=== PATIENT | male | born 1940 | race Caucasian/White ===

== ENCOUNTER 2024-10-12 18:20 | Emergency (ER) | payer MEDICARE, OTHER ==
[2024-10-12] MEDS ORDERED: Sodium Chloride 0.9% 10 ML Syringe FLUSH PRN (18:37)
[2024-10-12] MEDS: Aspirin 81 MG Tab.Chew PO ONE (18:46)
[2024-10-12] MEDS: Nitroglycerin 0.4 MG Tab.SL SL ONE (18:46)
[2024-10-12 18:53] LABS: BASOPHILS PERCENT AUTO 0.1 % (0.2-1.2); EOSINOPHILS PERCENT AUTO 0.3 % (0.0-4.0); HEMATOCRIT 43.4 % (40.0-52.0); HEMOGLOBIN 14.2 g/dL (14.0-18.0); IMMATURE GRAN ABSOLUTE AUTO 0.45 x10^3/uL (0.00-0.07); LYMPHOCYTES ABSOLUTE AUTO 1.1 x10^3/uL (1.0-4.8); LYMPHOCYTES PERCENT AUTO 7.9 % (25.0-50.0); MEAN CORPUSCULAR HEMOGLOBIN 31.2 pg (26.0-32.0); MEAN CORPUSCULAR HGB CONC 32.7 g/dL (32.0-36.0); MEAN CORPUSCULAR VOLUME 95.4 fL (78.0-93.0); MONOCYTES ABSOLUTE AUTO 3.4 x10^3/uL (0.0-0.8); MONOCYTES PERCENT AUTO 23.6 % (2.0-11.0); NEUTROPHILS ABSOLUTE AUTO 9.4 x10^3/uL (1.8-7.7); PLATELET COUNT,PLT 140 x10^3/uL (130-400); RED BLOOD CELL COUNT 4.55 x10^6/uL (4.5-6.0); WHITE BLOOD CELL COUNT,WBC 14.4 x10^3/uL (4.0-10.0)
[2024-10-12 19:04] LABS: PROTHROMBIN TIME 10.9 SEC (9.6-12.0)
[2024-10-12 19:39] LABS: A/G RATIO 0.89; ALBUMIN 3.2 g/dL (3.4-5.0); BILIRUBIN TOTAL 0.8 mg/dL (0.2-1.0); CALCIUM 9.5 mg/dL (8.5-10.1); CREATININE 1.9 mg/dL (0.70-1.30); EST CRCL DRUG DOSING (CG) 27.06 mL/min; MAGNESIUM 1.4 mg/dL (1.8-2.4); POTASSIUM,K 4.6 mmol/L (3.5-5.1); PROTEIN TOTAL,TP 6.8 g/dL (6.4-8.2)
[2024-10-12 19:40] LABS: ANION GAP 14.6 mmol/L (5-15)
[2024-10-12] MEDS: Magnesium Oxide 400 MG Tab PO ONE (20:10)
[2024-10-12] MEDS: Levofloxacin 500 MG Tab PO ONE (20:59)
== END 2024-10-12 21:01 | disposition home or self-care (01) ==
LOC: VM.ED 18:20
DX: J18.9 Pneumonia, unspecified organism (principal); E83.42 Hypomagnesemia; Z79.899 Other long term (current) drug therapy
CPT/HCPCS: 36415; 71045; 80053; 83735; 83880; 84484; 85025; 85610; 93005; 99285; A9270; 93010; 99284

== ENCOUNTER 2024-11-01 09:39 | Emergency (ER) | payer MEDICARE, OTHER ==
[2024-11-01] MEDS ORDERED: Sodium Chloride 0.9% 10 ML Syringe FLUSH PRN (10:15)
[2024-11-01] MEDS ORDERED: Iopamidol 612 MG/ML 100 ML Bottle IVPUSH ONE ×2 (10:25→10:41)
[2024-11-01] MEDS: Ondansetron 4 MG/2 ML SDV IVPUSH ONE ×2 (10:56→14:28)
[2024-11-01] MEDS: Sodium Chloride 0.9% 1,000 ML IV ONE (10:56)
[2024-11-01] MEDS: Morphine 2 MG/ML SYRINGE IVPUSH ONE ×2 (10:58→16:39)
[2024-11-01 11:26] LABS: HEMATOCRIT 39.3 % (40.0-52.0); HEMOGLOBIN 12.9 g/dL (14.0-18.0); MEAN CORPUSCULAR HEMOGLOBIN 30.9 pg (26.0-32.0); MEAN CORPUSCULAR HGB CONC 32.8 g/dL (32.0-36.0); MEAN CORPUSCULAR VOLUME 94.2 fL (78.0-93.0); PLATELET COUNT,PLT 195 x10^3/uL (130-400); RED BLOOD CELL COUNT 4.17 x10^6/uL (4.5-6.0)
[2024-11-01 11:40] LABS: WHITE BLOOD CELL COUNT,WBC 24.3 x10^3/uL (4.0-10.0)
[2024-11-01] MEDS: cefTRIAXone 1 GM Vial IVPUSH ONE (11:42)
[2024-11-01 11:57] LABS: A/G RATIO 0.61; ALANINE AMINOTRANSFERASE,ALT 57 U/L (16-63); ALBUMIN 2.8 g/dL (3.4-5.0); ALKALINE PHOSPHATASE 102 U/L (46-116); ANION GAP 22.2 mmol/L (5-15); ASPARTATE AMNIOTRANSFERASE,AST 23 U/L (15-37); BILIRUBIN TOTAL 0.9 mg/dL (0.2-1.0); BLOOD UREA NITROGEN,BUN 60 mg/dL (7-18); CALCIUM 9.8 mg/dL (8.5-10.1); CARBON DIOXIDE,CO2 19 mmol/L (21-32); CHLORIDE,CL 100 mmol/L (98-107); GLUCOSE RANDOM 215 mg/dL (70-99); POTASSIUM,K 5.2 mmol/L (3.5-5.1); PROTEIN TOTAL,TP 7.4 g/dL (6.4-8.2); SODIUM,NA 136 mmol/L (136-145)
[2024-11-01 11:58] LABS: CREATININE 4.9 mg/dL (0.70-1.30)
[2024-11-01 11:59] LABS: ESTIMATED GFR 11 mL/min (>=60)
[2024-11-01 12:00] LABS: LIPASE 64 U/L (19-71)
[2024-11-01 12:02] LABS: BAND PERCENT MAN 1 % (0-6); LYMPHOCYTES ABSOLUTE MAN 0.7 x10^3/uL (1.0-4.8); LYMPHOCYTES PERCENT MAN 3 % (25-50); METAMYELOCYTE PERCENT MAN 1 % (0); MONOCYTES ABSOLUTE MAN 1.7 x10^3/uL (0.0-0.8); MONOCYTES PERCENT MAN 7 % (2-11); MYELOCYTE PERCENT MAN 1 % (0); NEUTROPHILS ABSOLUTE MAN 21.4 x10^3/uL (1.8-7.7); PLATELET COUNT ESTIMATE ADEQUATE; SEG NEUTROPHILS PERCENT MAN 87 % (50-80)
[2024-11-01 12:04] LABS: POIKILOCYTOSIS 1+ SLIGHT
[2024-11-01 12:06] LABS: ANISOCYTOSIS NOT SEEN; OVALOCYTES 1+ SLIGHT
[2024-11-01 12:46] LABS: APPEARANCE,URINE SLIGHTLY CLOUDY (CLEAR); BILIRUBIN,URINE SMALL (NEGATIVE); COLOR,URINE DARK YELLOW (YELLOW); GLUCOSE,URINE NEGATIVE (NEGATIVE); KETONES,URINE NEGATIVE (NEGATIVE); LEUKOCYTE ESTERASE,URINE TRACE (NEGATIVE); NITRITE,URINE NEGATIVE (NEGATIVE); OCCULT BLOOD,URINE NEGATIVE (NEGATIVE); PH,URINE 5.5 (5.0-8.0); PROTEIN,URINE 100 mg/dL (NEGATIVE); UROBILINOGEN,URINE 0.2 EU/dL (0.2)
[2024-11-01 12:55] LABS: AMORPHOUS SEDIMENT,URINE FEW; BACTERIA,URINE MANY /HPF (NOT SEEN); HYALINE CASTS,URINE MANY; MUCUS,URINE MODERATE /LPF (NOT SEEN); SQUAMOUS EPITHELIAL CELLS,UR MODERATE /HPF (NOT SEEN)
[2024-11-01] MEDS: Diltiazem 50 MG/10 ML SDV IVPUSH ONE (14:31)
== END 2024-11-01 14:42 | disposition short-term general hospital (02) ==
LOC: VM.ED 09:39
DX: S32.018A Other fracture of first lumbar vertebra, initial encounter for closed fracture (principal); S22.41XA Multiple fractures of ribs, right side, initial encounter for closed fracture; A41.9 Sepsis, unspecified organism; S32.028A Other fracture of second lumbar vertebra, initial encounter for closed fracture; I31.39 Other pericardial effusion (noninflammatory); I48.91 Unspecified atrial fibrillation; E78.00 Pure hypercholesterolemia, unspecified; I12.9 Hypertensive chronic kidney disease with stage 1 through stage 4 chronic kidney disease, or unspecified chronic kidney disease; N18.9 Chronic kidney disease, unspecified; E11.22 Type 2 diabetes mellitus with diabetic chronic kidney disease; J45.909 Unspecified asthma, uncomplicated; Z79.51 Long term (current) use of inhaled steroids; Z79.899 Other long term (current) drug therapy; Z79.84 Long term (current) use of oral hypoglycemic drugs; Z87.891 Personal history of nicotine dependence; W01.198A Fall on same level from slipping, tripping and stumbling with subsequent striking against other object, initial encounter; Y93.89 Activity, other specified
CPT/HCPCS: 36415; 71250; 74176; 80053; 81001; 83605; 83690; 83880; 84484; 85025; 87040; 87086; 87088; 87186; 93010; 96374; 96375; 96376; 99284; 99285-25; J0696; J2270; J2405; J3490; J7030

== ENCOUNTER 2025-02-13 11:02 | Observation (INO) | payer MEDICARE, OTHER ==
[2025-02-13] MEDS ORDERED: Sodium Chloride 0.9% 10 ML Syringe FLUSH PRN (11:12)
[2025-02-13 11:32] LABS: BASOPHILS ABSOLUTE AUTO 0.0 x10^3/uL (0.0-0.2); BASOPHILS PERCENT AUTO 0.6 % (0.2-1.2); EOSINOPHILS ABSOLUTE AUTO 0.1 x10^3/uL (0.0-0.5); EOSINOPHILS PERCENT AUTO 1.6 % (0.0-4.0); IMMATURE GRAN ABSOLUTE AUTO 0.08 x10^3/uL (0.00-0.07); IMMATURE GRAN PERCENT AUTO 1.10 % (0.00-0.43); LYMPHOCYTES ABSOLUTE AUTO 1.1 x10^3/uL (1.0-4.8); LYMPHOCYTES PERCENT AUTO 15.9 % (25.0-50.0); MONOCYTES ABSOLUTE AUTO 1.3 x10^3/uL (0.0-0.8); MONOCYTES PERCENT AUTO 18.5 % (2.0-11.0); NEUTROPHILS ABSOLUTE AUTO 4.4 x10^3/uL (1.8-7.7); NEUTROPHILS PERCENT AUTO 62.3 % (50.0-80.0); PLATELET COUNT,PLT 121 x10^3/uL (130-400); RED BLOOD CELL COUNT 3.60 x10^6/uL (4.5-6.0); WHITE BLOOD CELL COUNT,WBC 7.1 x10^3/uL (4.0-10.0)
[2025-02-13] MEDS: hydrALAZINE 20 MG/ML SDV IVPUSH ONE ×4 (11:47→23:28)
[2025-02-13 11:55] LABS: A/G RATIO 1.03; ALANINE AMINOTRANSFERASE,ALT 27 U/L (16-63); ASPARTATE AMNIOTRANSFERASE,AST 15 U/L (15-37); BILIRUBIN TOTAL 0.7 mg/dL (0.2-1.0); BLOOD UREA NITROGEN,BUN 39 mg/dL (7-18); CARBON DIOXIDE,CO2 27 mmol/L (21-32); CHLORIDE,CL 104 mmol/L (98-107); CREATININE 3.0 mg/dL (0.70-1.30); GLUCOSE RANDOM 133 mg/dL (70-99); POTASSIUM,K 5.0 mmol/L (3.5-5.1); PROTEIN TOTAL,TP 7.5 g/dL (6.4-8.2); SODIUM,NA 140 mmol/L (136-145)
[2025-02-13 11:57] LABS: ESTIMATED GFR 20 mL/min (>=60)
[2025-02-13] MEDS ORDERED: Ondansetron 4 MG/2 ML SDV IV PRN (13:10)
[2025-02-13] MEDS ORDERED: Ondansetron 4 MG Tab.DIS PO PRN (13:10)
[2025-02-13] MEDS ORDERED: Albuterol 0.083% 2.5 MG/3 ML Neb Soln NEB PRN (13:10)
[2025-02-13] MEDS ORDERED: Albuterol HFA 18 Gm Inhaler INH PRN (15:06)
[2025-02-14] MEDS: hydrALAZINE 20 MG/ML SDV IVPUSH ONE (03:21)
[2025-02-14 06:51] LABS: BASOPHILS ABSOLUTE AUTO 0.0 x10^3/uL (0.0-0.2); BASOPHILS PERCENT AUTO 0.2 % (0.2-1.2); EOSINOPHILS ABSOLUTE AUTO 0.1 x10^3/uL (0.0-0.5); EOSINOPHILS PERCENT AUTO 1.3 % (0.0-4.0); IMMATURE GRAN ABSOLUTE AUTO 0.11 x10^3/uL (0.00-0.07); IMMATURE GRAN PERCENT AUTO 1.30 % (0.00-0.43); LYMPHOCYTES ABSOLUTE AUTO 1.1 x10^3/uL (1.0-4.8); LYMPHOCYTES PERCENT AUTO 12.7 % (25.0-50.0); MONOCYTES ABSOLUTE AUTO 1.8 x10^3/uL (0.0-0.8); MONOCYTES PERCENT AUTO 21.2 % (2.0-11.0); NEUTROPHILS ABSOLUTE AUTO 5.4 x10^3/uL (1.8-7.7); NEUTROPHILS PERCENT AUTO 63.3 % (50.0-80.0); RED BLOOD CELL COUNT 3.59 x10^6/uL (4.5-6.0); WHITE BLOOD CELL COUNT,WBC 8.5 x10^3/uL (4.0-10.0)
[2025-02-14 07:08] LABS: BLOOD UREA NITROGEN,BUN 38.0 mg/dL (7-18); CARBON DIOXIDE,CO2 23.0 mmol/L (21-32); CHLORIDE,CL 107.0 mmol/L (98-107); EST CRCL DRUG DOSING (CG) 16.29 mL/min; GLUCOSE RANDOM 147.0 mg/dL (70-99); POTASSIUM,K 4.6 mmol/L (3.5-5.1); SODIUM,NA 140.0 mmol/L (136-145)
[2025-02-14 07:10] LABS: ESTIMATED GFR 19.0 mL/min (>=60)
[2025-02-14 07:11] LABS: CREATININE 3.1 mg/dL (0.70-1.30)
[2025-02-14 07:14] LABS: PLATELET COUNT,PLT 120 x10^3/uL (130-400)
[2025-02-14] MEDS: hydrALAZINE 20 MG/ML SDV ONE (09:10)
[2025-02-14] MEDS: Calcium Carbonate/Vitamin D3 1250 MG-5 MCG Tab PO SCH (10:00)
== END 2025-02-14 11:30 | disposition home or self-care (01) ==
LOC: VM.ED 11:02 → VM.MS 12:26
PROVIDERS: ADMIT Internal Medicine; ATTEND Internal Medicine
DX: I10 Essential (primary) hypertension (principal); J45.909 Unspecified asthma, uncomplicated; E11.22 Type 2 diabetes mellitus with diabetic chronic kidney disease; N18.4 Chronic kidney disease, stage 4 (severe); D63.1 Anemia in chronic kidney disease; E78.5 Hyperlipidemia, unspecified; N28.89 Other specified disorders of kidney and ureter; I16.0 Hypertensive urgency; I48.91 Unspecified atrial fibrillation; D69.6 Thrombocytopenia, unspecified; Z79.01 Long term (current) use of anticoagulants; Z79.82 Long term (current) use of aspirin; Z79.899 Other long term (current) drug therapy
CPT/HCPCS: 36415; 80048; 80053; 84484; 85025; 93005; 93010; 96374; 96376; 99284; 99284-25; A9270-GY; G0378; J0360